=== PATIENT | female | born 1995 | race Caucasian/White ===

== ENCOUNTER 2016-10-22 20:10 | Emergency (ER) | payer OTHER ==
[2016-10-22 21:54] VITALS: BP 122/71
== END 2016-10-22 21:54 | disposition home or self-care (01) ==
LOC: ED 20:10
DX: R07.89 Other chest pain (principal); K21.9 Gastro-esophageal reflux disease without esophagitis; F41.9 Anxiety disorder, unspecified; Z88.1 Allergy status to other antibiotic agents

== ENCOUNTER 2017-03-13 14:30 | Emergency (ER) | payer OTHER ==
[2017-03-13 16:21] VITALS: BP 126/71
== END 2017-03-13 16:21 | disposition home or self-care (01) ==
LOC: ED 14:30
DX: S16.1XXA Strain of muscle, fascia and tendon at neck level, initial encounter (principal); S29.012A Strain of muscle and tendon of back wall of thorax, initial encounter; S09.90XA Unspecified injury of head, initial encounter; V43.52XA Car driver injured in collision with other type car in traffic accident, initial encounter; Y93.I9 Activity, other involving external motion; Y92.411 Interstate highway as the place of occurrence of the external cause; Y99.8 Other external cause status

== ENCOUNTER 2017-06-05 19:31 | Emergency (ER) | payer OTHER ==
[~2017-06-05] VITALS: Ht 175.3 cm; Wt 68.9 kg
[2017-06-05 19:37] VITALS: Ht 175.3 cm; Wt 68.9 kg
[2017-06-05 22:24] VITALS: BP 129/80
== END 2017-06-05 22:25 | disposition home or self-care (01) ==
LOC: ED 19:31
DX: S09.90XA Unspecified injury of head, initial encounter (principal); Z88.1 Allergy status to other antibiotic agents; W22.8XXA Striking against or struck by other objects, initial encounter; Y93.89 Activity, other specified; Y92.89 Other specified places as the place of occurrence of the external cause; Y99.8 Other external cause status

== ENCOUNTER 2018-08-09 21:16 | Emergency (ER) | payer OTHER ==
[~2018-08-09] VITALS: Ht 175.3 cm; Wt 73.9 kg
[2018-08-09 21:38] VITALS: Ht 175.3 cm; Wt 73.9 kg
[2018-08-09 22:22] VITALS: BP 135/85
== END 2018-08-09 22:22 | disposition home or self-care (01) ==
LOC: ED 21:16
DX: J06.9 Acute upper respiratory infection, unspecified (principal); H66.91 Otitis media, unspecified, right ear; H10.9 Unspecified conjunctivitis; J32.9 Chronic sinusitis, unspecified; F41.9 Anxiety disorder, unspecified; Z88.0 Allergy status to penicillin

== ENCOUNTER 2018-11-21 00:34 | Emergency (ER) | payer OTHER ==
[~2018-11-21] VITALS: Ht 175.3 cm; Wt 70.3 kg
[2018-11-21 00:40] VITALS: Ht 175.3 cm; Wt 70.3 kg
[2018-11-21 02:15] VITALS: BP 175/76
== END 2018-11-21 02:15 | disposition home or self-care (01) ==
LOC: ED 00:34
DX: S90.02XA Contusion of left ankle, initial encounter (principal); Z88.0 Allergy status to penicillin; F41.9 Anxiety disorder, unspecified; W22.8XXA Striking against or struck by other objects, initial encounter; Y93.89 Activity, other specified; Y92.89 Other specified places as the place of occurrence of the external cause; Y99.8 Other external cause status

== ENCOUNTER 2019-01-18 22:24 | Emergency (ER) | payer OTHER ==
[~2019-01-18] VITALS: Ht 175.3 cm; Wt 71.9 kg
[2019-01-18 23:41] VITALS: BP 115/67
== END 2019-01-18 23:41 | disposition home or self-care (01) ==
LOC: ED 22:24
DX: K64.8 Other hemorrhoids (principal); F41.9 Anxiety disorder, unspecified; Z88.1 Allergy status to other antibiotic agents